=== PATIENT | male | born 1990 | race Caucasian/White ===

== ENCOUNTER 2016-11-20 21:52 | Emergency (ER) | payer OTHER ==
[~2016-11-20] VITALS: Ht 180.3 cm; Wt 90.0 kg
[2016-11-20 21:53] VITALS: BP 132/74; PULSE 61; TEMP 37; O2SAT 98; Ht 180.3 cm; Wt 90.0 kg
[2016-11-20] MEDS ORDERED: TRVHP PO ×2 (22:28→22:49)
[2016-11-20] MEDS ORDERED: RALT400T PO ×2 (22:28→22:49)
[2016-11-20] MEDS ORDERED: HIV POST EXPOSURE PROPHYLAXIS KIT ONE (22:30)
[2016-11-20 23:08] LABS: BASO % 0.4 %; BASO ABS # 0.03 K/uL (0-0.2); COMPLETE YES; HEMATOCRIT 43.1 % (42-52); IG% 0.1 %; LYMPH % 30.4 %; LYMPH ABS # 2.21 K/uL (1.2-3.4); MEAN CORPUSCULAR HEMOGLOBIN 30.1 pg (25-34); MEAN PLATELET VOLUME 9.8 fL (7.4-10.4); MONO % 5.1 %; PLATELET COUNT 245 K/uL (130-400); RED BLOOD COUNT 5.01 M/uL (4.7-6.1); WHITE BLOOD COUNT 7.28 K/uL (4.8-10.8)
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
[2016-11-20 23:30] LABS: CALCIUM 9.5 mg/dl (8.5-10.1); CREATININE 1.1 mg/dl (0.60-1.40); POTASSIUM 4.2 mmol/L (3.5-5.1)
[2016-11-20 23:33] LABS: ALB/GLOB RATIO 1.2 (0.9-2)
[2016-11-20 23:53] LABS: HEPATITIS B AB POS
== END 2016-11-20 23:09 | disposition home or self-care (01) ==
LOC: C.EDB 21:52 → C.EDA 23:09
DX: Z77.21 Contact with and (suspected) exposure to potentially hazardous body fluids (principal); Z20.9 Contact with and (suspected) exposure to unspecified communicable disease; Y99.0 Civilian activity done for income or pay